=== PATIENT | female | born 1975 | race African-American/Black ===

== ENCOUNTER 2018-07-05 17:56 | Emergency (ER) | payer SELFPAY ==
[~2018-07-05] VITALS: Ht 154.9 cm; Wt 111.4 kg
[2018-07-05 18:19] VITALS: TEMP 98
[2018-07-05 18:45] LABS: COLLECTION METHOD CLEAN CATCH
[2018-07-05 18:59] LABS: PH 6 (5-8); URINE APPEARANCE Clear; URINE BACTERIA None Seen /hpf; URINE BILIRUBIN Negative (NEGATIVE); URINE BLOOD Negative (NEGATIVE); URINE COLOR Yellow; URINE GLUCOSE 3+ (NEGATIVE); URINE KETONE Trace (NEGATIVE); URINE LEUKOCYTE ESTERASE Negative (NEGATIVE); URINE NITRATE Negative (NEGATIVE); URINE PROTEIN(semi-quant) Negative (NEGATIVE); URINE RBC 0-2 /hpf; URINE UROBILINOGEN Negative (NEGATIVE)
[2018-07-05] MEDS ORDERED: LEVOXYL0.2 MG PO (19:17)
[2018-07-05] MEDS ORDERED: BASAGLAR K100 UNIT/1 (19:18)
[2018-07-05] MEDS ORDERED: LANTUS SOLOS100 U/ML ×2 (19:18→19:19)
[2018-07-05 20:13] LABS: BASO # 0.1 (0.0-0.2); BASO % 0.4 % (0.0-2.0); EOS # 0.3 (0.0-0.7); GRAN # 9.7 (1.4-6.5); GRAN % 71.3 % (42.2-75.2); HEMATOCRIT 40.7 % (37.0-47.0); HEMOGLOBIN 12.9 g/dl (12.5-16.0); LYMPH # 2.7 (1.2-3.4); MEAN CELL VOLUME 79 fl (80.0-100.0); MEAN CORPUSCULAR HEMOGLOBIN 25 pg (27.0-31.0); MEAN CORPUSCULAR HGB CONC 32 g/dl (33.0-37.0); MEAN PLATELET VOLUME 12.3 fl (7.4-10.4); MONO # 0.8 (0.1-0.6); MONO % 5.9 % (1.7-9.3); PLATELET COUNT 327 K/mm3 (130-400); RED BLOOD COUNT 5.13 M/mm3 (4.10-5.30); REDCELL DISTRIBUTION WIDTH-CV 14.5 % (11.5-14.5)
[2018-07-05 20:26] LABS: ALBUMIN 4.2 gm/dL (3.5-5.0); BILIRUBIN,TOTAL 0.3 mg/dL (0.0-1.0); C-REACTIVE PROTEIN 1.2 mg/dL (0.0-0.9); CALCIUM 9.3 mg/dL (8.4-10.2); CREATININE, serum 0.61 mg/dL (0.52-1.25); POTASSIUM 4.1 mmol/L (3.4-5.0); TOTAL PROTEIN 7.6 gm/dL (6.4-8.2)
[2018-07-05] MEDS ORDERED: NYSTATIN POWDER30 GM TOP (22:48)
[2018-07-05 23:08] VITALS: BP 124/83; PULSE 69
== END 2018-07-05 23:08 | disposition home or self-care (01) ==
LOC: COL.ER 17:56
PROVIDERS: Emergency Medicine; Nurse Practitioner
DX: R10.30 Lower abdominal pain, unspecified (principal); R21 Rash and other nonspecific skin eruption; E11.9 Type 2 diabetes mellitus without complications; M06.9 Rheumatoid arthritis, unspecified; M79.7 Fibromyalgia; F17.210 Nicotine dependence, cigarettes, uncomplicated; Z79.4 Long term (current) use of insulin; Z90.49 Acquired absence of other specified parts of digestive tract
CPT/HCPCS: Q9967

== ENCOUNTER → 2019-01-14 | Outpatient (CLI) | payer SELFPAY ==
[~2019-01-14] MED LIST: BASAGLAR K100 UNIT/1; LANTUS SOLOS100 U/ML; LEVOXYL0.2 MG PO; NYSTATIN POWDER30 GM TOP
[2019-01-14 10:17] LABS: HEMATOCRIT 38.7 % (37.0-47.0); MEAN CELL VOLUME 79 fl (80.0-100.0); MEAN CORPUSCULAR HEMOGLOBIN 25 pg (27.0-31.0); MEAN CORPUSCULAR HGB CONC 31 g/dl (33.0-37.0); MEAN PLATELET VOLUME 11.2 fl (7.4-10.4); PLATELET COUNT 407 K/mm3 (130-400); REDCELL DISTRIBUTION WIDTH-CV 14.5 % (11.5-14.5)
[2019-01-14 10:20] LABS: ALBUMIN 4.1 gm/dL (3.5-5.0); BILIRUBIN,TOTAL 0.3 mg/dL (0.0-1.0); CHOLESTEROL RISK RATIO 5.2; CREATININE, serum 0.48 (0.52-1.25); POTASSIUM 3.9 mmol/L (3.4-5.0); TOTAL PROTEIN 7.4 gm/dL (6.4-8.2)
[2019-01-14 10:50] LABS: THYROID STIMULATING HORMONE 3.54 uIU/mL (0.465-4.680)
== END ==
LOC: COL.LAB 09:24
DX: Z01.89 Encounter for other specified special examinations (principal)

== ENCOUNTER → 2019-02-06 | Outpatient (CLI) | payer SELFPAY | LOC: DIA.ED 01-17 15:30 | DX: E11.9 Type 2 diabetes mellitus without complications (principal); E78.5 Hyperlipidemia, unspecified; E03.9 Hypothyroidism, unspecified; E66.9 Obesity, unspecified; Z79.4 Long term (current) use of insulin | CPT/HCPCS: G0108 ==

== ENCOUNTER → 2019-02-06 | Outpatient (CLI) | payer SELFPAY | LOC: COL.PUL 12:39 | DX: M06.9 Rheumatoid arthritis, unspecified (principal); E11.9 Type 2 diabetes mellitus without complications; Z90.89 Acquired absence of other organs ==

== ENCOUNTER → 2019-02-07 | Outpatient (CLI) | payer SELFPAY | LOC: COL.CARD 13:08 | DX: E11.9 Type 2 diabetes mellitus without complications (principal) ==

== ENCOUNTER 2019-03-03 12:24 | Emergency (ER) | payer SELFPAY ==
[~2019-03-03] VITALS: Ht 154.9 cm; Wt 106.8 kg
[~2019-03-03 12:24] MED LIST changes: -HUMALOGKP50/50 SQ
[2019-03-03 12:33] VITALS: TEMP 97.2
[2019-03-03] MEDS ORDERED: HUMALOGKP50/50 SQ (13:58)
[2019-03-03 14:08] LABS: COLLECTION METHOD CLEAN CATCH
[2019-03-03 14:17] LABS: BASO # 0.1 (0.0-0.2); BASO % 0.3 % (0.0-2.0); EOS # 0.1 (0.0-0.7); EOS % 0.8 % (0-4.0); GRAN # 12.7 (1.4-6.5); GRAN % 79.6 % (42.2-75.2); HEMATOCRIT 41.8 % (37.0-47.0); HEMOGLOBIN 12.9 g/dl (12.5-16.0); LYMPH # 2.2 (1.2-3.4); LYMPH % 13.9 % (20.0-51.0); MEAN CELL VOLUME 78 fl (80.0-100.0); MEAN CORPUSCULAR HEMOGLOBIN 24 pg (27.0-31.0); MEAN CORPUSCULAR HGB CONC 31 g/dl (33.0-37.0); MEAN PLATELET VOLUME 11.2 fl (7.4-10.4); MONO # 0.7 (0.1-0.6); MONO % 4.6 % (1.7-9.3); PLATELET COUNT 403 K/mm3 (130-400); RED BLOOD COUNT 5.37 M/mm3 (4.10-5.30); REDCELL DISTRIBUTION WIDTH-CV 15.8 % (11.5-14.5)
[2019-03-03 14:34] LABS: MUCOUS Present /lpf; PH 5 (5-8); URINE APPEARANCE Hazy; URINE BACTERIA None Seen /hpf; URINE BILIRUBIN Negative (NEGATIVE); URINE BLOOD Negative (NEGATIVE); URINE COLOR Yellow; URINE GLUCOSE Negative (NEGATIVE); URINE KETONE Negative (NEGATIVE); URINE LEUKOCYTE ESTERASE Negative (NEGATIVE); URINE NITRATE Negative (NEGATIVE); URINE PROTEIN(semi-quant) Negative (NEGATIVE); URINE RBC 0-2 /hpf; URINE UROBILINOGEN Negative (NEGATIVE)
[2019-03-03 15:19] LABS: ALBUMIN 4.2 gm/dL (3.5-5.0); BILIRUBIN,TOTAL 0.3 mg/dL (0.0-1.0); C-REACTIVE PROTEIN 1.1 mg/dL (0.0-0.9); CALCIUM 8.7 mg/dL (8.4-10.2); CREATININE, serum 0.61 (0.52-1.25); POTASSIUM 4.2 mmol/L (3.4-5.0); TOTAL PROTEIN 7.6 gm/dL (6.4-8.2)
[2019-03-03 16:47] VITALS: BP 131/79; PULSE 62
== END 2019-03-03 16:50 | disposition home or self-care (01) ==
LOC: COL.ER 12:24
PROVIDERS: Emergency Medicine; Physician Assistant
DX: R10.32 Left lower quadrant pain (principal); E11.9 Type 2 diabetes mellitus without complications; E03.9 Hypothyroidism, unspecified; F17.210 Nicotine dependence, cigarettes, uncomplicated; Z90.89 Acquired absence of other organs; Z79.4 Long term (current) use of insulin
CPT/HCPCS: J7030; Q9967

== ENCOUNTER → 2019-03-03 | Outpatient (CLI) | payer SELFPAY ==
[~2019-03-03] MED LIST changes: +HUMALOGKP50/50 SQ
== END ==
LOC: DIA.ED 10:12
DX: E11.9 Type 2 diabetes mellitus without complications (principal); E78.5 Hyperlipidemia, unspecified; E03.9 Hypothyroidism, unspecified; E66.9 Obesity, unspecified; Z79.4 Long term (current) use of insulin
CPT/HCPCS: G0108

== ENCOUNTER → 2019-03-24 | Outpatient (CLI) | payer SELFPAY ==
[~2019-03-24] MED LIST changes: +HUMALOGKP50/50 SQ
== END ==
LOC: DIA.ED 08:53
DX: E11.9 Type 2 diabetes mellitus without complications (principal); E78.5 Hyperlipidemia, unspecified; E03.9 Hypothyroidism, unspecified; E66.9 Obesity, unspecified
CPT/HCPCS: G0108

== ENCOUNTER 2019-08-15 14:54 | Inpatient (IN) | payer OTHER ==
[~2019-08-15] VITALS: Ht 154.9 cm; Wt 108.5 kg
[2019-08-15 15:42] LABS: BASO # 0.1 (0.0-0.2); BASO % 0.3 % (0.0-2.0); EOS # 0.1 (0.0-0.7); EOS % 0.5 % (0-4.0); GRAN # 16.8 (1.4-6.5); GRAN % 84.4 % (42.2-75.2); HEMATOCRIT 42.2 % (37.0-47.0); HEMOGLOBIN 13.2 g/dl (12.5-16.0); LYMPH # 1.8 (1.2-3.4); LYMPH % 8.8 % (20.0-51.0); MEAN CELL VOLUME 77 fl (80.0-100.0); MEAN CORPUSCULAR HEMOGLOBIN 24 pg (27.0-31.0); MEAN CORPUSCULAR HGB CONC 31 g/dl (33.0-37.0); MEAN PLATELET VOLUME 11.9 fl (7.4-10.4); MONO # 1.1 (0.1-0.6); MONO % 5.6 % (1.7-9.3); PLATELET COUNT 405 K/mm3 (130-400); RED BLOOD COUNT 5.48 M/mm3 (4.10-5.30); REDCELL DISTRIBUTION WIDTH-CV 14.7 % (11.5-14.5)
[2019-08-15 16:02] LABS: ALBUMIN 4.4 gm/dL (3.5-5.0); BILIRUBIN,TOTAL 0.7 mg/dL (0.0-1.0); CALCIUM 9.3 mg/dL (8.4-10.2); CREATININE, serum 0.52 (0.52-1.25); POTASSIUM 3.6 mmol/L (3.4-5.0); TOTAL PROTEIN 8.2 gm/dL (6.4-8.2)
[2019-08-15 16:23] LABS: C-REACTIVE PROTEIN 19.1 mg/dL (0.0-0.9)
--- NOTE | 2019-08-15 19:02 | NUR ---
settled patient to room and gave report to Kristal BENNETT.
[2019-08-15 20:01] VITALS: BP 116/64; PULSE 87; TEMP 98.3
[2019-08-15 20:10] VITALS: BP 116/64; PULSE 83; TEMP 98.3
[2019-08-15] MEDS ORDERED: LANTUS SOLOS100 U/ML SQ (21:11)
[2019-08-15] MEDS ORDERED: HUMALOG100 U/ML SQ (22:15)
--- NOTE | 2019-08-15 23:30 | NUR ---
Called with c/o pain to lower abdomen/labia-rating pain 10/10 on pain scale-described as sharp shooting pains. [place] [address] horton. Will monitor.
--- NOTE | 2019-08-15 23:40 | NUR ---
Called stating she couldnt handle the pain-or wait for pain pill to kick in. States she needs relief now. Morphine 2mg given per dr order. Instructed to call for pain meds earlier-scheduled discussed on frequency of medications. Verblaizes understanding. Call light in reach. Will monitor.
[2019-08-16] VITALS (7 sets, daily range): BP systolic 100–127; BP diastolic 45–69; PULSE 86–93; TEMP 98.1–99.6
--- NOTE | 2019-08-16 05:53 | NUR ---
Rested off an on this shift. Received [place] as well as morphine for pain control. VS remained stable. Tolerated diet/voiding without difficulty. Denies needs. Call light in reach. Will monitor.
[2019-08-16 07:34] LABS: MEAN CELL VOLUME 76 fl (80.0-100.0); MEAN CORPUSCULAR HGB CONC 31 g/dl (33.0-37.0); PLATELET COUNT 337 K/mm3 (130-400); RED BLOOD COUNT 4.41 M/mm3 (4.10-5.30); REDCELL DISTRIBUTION WIDTH-CV 14.6 % (11.5-14.5)
[2019-08-16 07:45] LABS: CALCIUM 7.9 mg/dL (8.4-10.2); CREATININE, serum 0.44 (0.52-1.25); MAGNESIUM 1.5 mg/dL (1.6-2.3); POTASSIUM 3.2 mmol/L (3.4-5.0)
[2019-08-16 07:47] LABS: HEMATOCRIT 33.7 % (37.0-47.0); HEMOGLOBIN 10.5 g/dl (12.5-16.0); MEAN CORPUSCULAR HEMOGLOBIN 24 pg (27.0-31.0)
[2019-08-16 09:43] LABS: LYMPHOCYTE 5 % (20.0-51.0); NEUTROPHILS 87 % (42.0-75.2)
[2019-08-16 09:44] LABS: PLATELET ESTIMATE NORMAL (NORMAL)
--- NOTE | 2019-08-16 12:44 | NUR ---
Plan: To return home with Naman Hartman . Assess: Patient reports that she resides in town. Patient shares that she uses the [facility] and sees Dr. Burnett. Marlee christina having a DPOA. Patient reports that she obtains her medications form [facility] on [address]. Patient denies having any DME use or home health use. Declines services. Patient denies having any care concerns. Reports will help transport home. Action: Educated on resources, nothing follows.
--- NOTE | 2019-08-16 18:30 | NUR ---
Patient did well todady. She has been resting most of the day. Offered to help her shower this morning, she did not want to shower. She had norco twice today for pain in her lower abdomen when getting back into bed. No complaints of nausea. No other changes at this time. Call light within reach.
[2019-08-17 03:36] VITALS: BP 112/62; PULSE 95; TEMP 98.1
--- NOTE | 2019-08-17 04:13 | NUR ---
Patient up to take a shower at beginning of the shift. This was noted to be very difficult for her and patient complained of pain 10/10 to abdomen. Patient sat on her bed, and was given pain medication. She then had a moderate amount of emesis. Patient stated she felt much better. Patient then fell asleep and has been resting until about 0400 when she requested more pain medication. This was administered and patient fell back to sleep. IV antibiotics given per orders. Will continue to monitor patient.
[2019-08-17 07:54] VITALS: BP 118/70; PULSE 100; TEMP 98.3
[2019-08-17 07:57] LABS: HEMOGLOBIN 10.8 g/dl (12.5-16.0); MEAN CELL VOLUME 77 fl (80.0-100.0); MEAN CORPUSCULAR HEMOGLOBIN 24 pg (27.0-31.0); MEAN CORPUSCULAR HGB CONC 32 g/dl (33.0-37.0); MEAN PLATELET VOLUME 12.1 fl (7.4-10.4); PLATELET COUNT 373 K/mm3 (130-400); RED BLOOD COUNT 4.46 M/mm3 (4.10-5.30); REDCELL DISTRIBUTION WIDTH-CV 14.9 % (11.5-14.5)
[2019-08-17 07:59] LABS: HEMATOCRIT 34.1 % (37.0-47.0)
[2019-08-17 08:05] LABS: CALCIUM 8.3 mg/dL (8.4-10.2); CREATININE, serum 0.48 (0.52-1.25); MAGNESIUM 2.4 mg/dL (1.6-2.3); POTASSIUM 3.5 mmol/L (3.4-5.0)
[2019-08-17 08:56] LABS: BAND 1 % (0-10); LYMPHOCYTE 11 % (20.0-51.0); NEUTROPHILS 81 % (42.0-75.2); PLATELET ESTIMATE NORMAL (NORMAL)
[2019-08-17 08:58] LABS: OVALOCYTES 1+
--- NOTE | 2019-08-17 10:02 | NUR ---
Patient alert and oriented, answers questions appropriately. See assessment. Lower abdomen with redness and edema noted, patient states no real improvement. Abdomen soft, non tender, non distended. Bowel sounds active x4 quads. +Flatus. No other c/o at this time.
[2019-08-17 11:09] VITALS: BP 117/63; PULSE 90; TEMP 99.1
--- NOTE | 2019-08-17 11:45 | NUR ---
Dr Judd here to see patient.
--- NOTE | 2019-08-17 12:14 | NUR ---
Dr Feliciano notified of consult.
[2019-08-17 16:21] VITALS: BP 112/67; PULSE 80; TEMP 98.2
[2019-08-17 20:00] VITALS: BP 90/51; PULSE 89; TEMP 98.4
[2019-08-18 00:16] VITALS: BP 116/61; PULSE 97; TEMP 98.8
[2019-08-18 04:20] VITALS: BP 100/76; PULSE 87; TEMP 99
--- NOTE | 2019-08-18 05:28 | NUR ---
Patient has rested well throughout the night. Requested and received Zofran with Rocephin dose tonight. Patient had nausea, but no vomiting. Patient educated about the adverse effect. INT to right AC flushes slowly, but easily. Lower abdomen continues to be red, warm, and edematous. PRN pain medication given when requested per orders. States this is effective for her pain. Patient is independent when ambulating to the restroom. Denies any further needs. Will continue to monitor.
[2019-08-18 07:10] LABS: MEAN CELL VOLUME 76 fl (80.0-100.0); MEAN CORPUSCULAR HGB CONC 32 g/dl (33.0-37.0); MEAN PLATELET VOLUME 11.9 fl (7.4-10.4); PLATELET COUNT 370 K/mm3 (130-400); RED BLOOD COUNT 3.98 M/mm3 (4.10-5.30); REDCELL DISTRIBUTION WIDTH-CV 14.8 % (11.5-14.5)
[2019-08-18 07:14] VITALS: BP 108/61; PULSE 94; TEMP 99.1
[2019-08-18 07:16] LABS: HEMATOCRIT 30.4 % (37.0-47.0); HEMOGLOBIN 9.6 g/dl (12.5-16.0); MEAN CORPUSCULAR HEMOGLOBIN 24 pg (27.0-31.0)
[2019-08-18 07:32] LABS: CALCIUM 8.4 mg/dL (8.4-10.2); CREATININE, serum 0.74 (0.52-1.25); MAGNESIUM 2.1 mg/dL (1.6-2.3); POTASSIUM 4.1 mmol/L (3.4-5.0)
[2019-08-18 08:03] LABS: C-REACTIVE PROTEIN 32.8 mg/dL (0.0-0.9)
[2019-08-18 08:56] LABS: BAND 10 % (0-10); EOSINOPHIL 4 % (0-4); LYMPHOCYTE 10 % (20.0-51.0); NEUTROPHILS 71 % (42.0-75.2)
[2019-08-18 09:01] LABS: HYPOCHROMIA 1+; MICROCYTOSIS 1+; PLATELET ESTIMATE NORMAL (NORMAL)
--- NOTE | 2019-08-18 10:00 | NUR ---
Patient alert and oriented, answers questions appropriately. See assessment. Abdomen with minimal discoloration noted, warm to touch, edema noted. Bowel sounds active x4 quads. +Flatus. C/o pain to abdomen 3/10. No other c/o at this time.
[2019-08-18 11:40] VITALS: BP 117/63; PULSE 84; TEMP 98.3
--- NOTE | 2019-08-18 12:31 | NUR ---
Dr Barroso here to see patient.
[2019-08-18 15:35] VITALS: BP 110/59; PULSE 86; TEMP 99
--- NOTE | 2019-08-18 20:15 | NUR ---
Received report sofia Hall RN. Alert and oriented x4. c/o pain to lower abdomen, rate 7/10. Requesting pain meds when due. Scheduled meds and PRN pain meds administered as requested by pateint. Lower abdomen with slight redness, firm, tender to touch. Mid and upper abdomen without c/o pain. Bowel sounds active x4. PICC to NAOMI intact, flushed, dressing CDI. Needs met at this time. Call light within reach.
[2019-08-18 20:39] VITALS: BP 115/62; PULSE 92; TEMP 99.2
[2019-08-19 00:40] VITALS: BP 110/64; PULSE 96; TEMP 99.1
[2019-08-19 04:14] VITALS: BP 110/66; PULSE 97; TEMP 99.2
--- NOTE | 2019-08-19 05:11 | NUR ---
Pt requested pain meds for rate 7/10 abdomen pain. PRN pain meds adminsitered as requested by pt. Needs met at this time. Call light within reach.
[2019-08-19 06:22] LABS: MEAN CELL VOLUME 77 fl (80.0-100.0); MEAN CORPUSCULAR HEMOGLOBIN 24 pg (27.0-31.0); MEAN CORPUSCULAR HGB CONC 31 g/dl (33.0-37.0); PLATELET COUNT 405 K/mm3 (130-400); RED BLOOD COUNT 4.17 M/mm3 (4.10-5.30)
[2019-08-19 06:32] LABS: CALCIUM 8.6 mg/dL (8.4-10.2); CREATININE, serum 0.92 (0.52-1.25); MAGNESIUM 2.1 mg/dL (1.6-2.3); POTASSIUM 4.2 mmol/L (3.4-5.0)
[2019-08-19 06:44] LABS: HEMATOCRIT 31.9 % (37.0-47.0)
[2019-08-19 07:01] LABS: BAND 14 % (0-10); EOSINOPHIL 2 % (0-4); LYMPHOCYTE 9 % (20.0-51.0); NEUTROPHILS 65 % (42.0-75.2); PLATELET ESTIMATE NORMAL (NORMAL)
[2019-08-19 07:29] VITALS: BP 109/62; PULSE 89; TEMP 98.4
--- NOTE | 2019-08-19 08:00 | NUR ---
PATIENT IS A&O. RATES PAIN IN ABD AT 6-7 ON PAIN SCALE. GAVE PRN NORCO, ONE TAB WITH AM MEDS. ABD/PANUS IS RED, FIRM AND WITH NOTED CELLULITIS. APPLIED ABD TO PANUS FOLDS DUE TO MOISTURE AND SKIN IRRITATION. PATIENT'S WBC WENT UP TO 22.4. PATIENT HAS LOW GRADE TEMPS. ALL OTHER VSS. RIGHT PICC LINE WITH IV ABX INFUSING. PATIENT INDEPENDENT IN ROOM. HEAD TO TOE ASSESSMENT COMPLETE. AM BS WAS 203, INSULIN GIVEN. NO OTHER NEEDS.
[2019-08-19 11:10] VITALS: BP 104/60; PULSE 85; TEMP 98.2
--- NOTE | 2019-08-19 11:37 | NUR ---
First visit from the summer analyst. No needs right now.
--- NOTE | 2019-08-19 12:39 | NUR ---
The patient may be needing IV antibiotics. Will continue to monitor.
[2019-08-19 15:48] VITALS: BP 111/63; PULSE 89; TEMP 99.2
--- NOTE | 2019-08-19 19:15 | NUR ---
Received report from SABRINA Shankar. Pt is currently sittin up in the chair. Pt has her call light within reach and has no concerns at this time.
[2019-08-19 21:05] VITALS: BP 112/61; PULSE 79; TEMP 98.4
[2019-08-20 00:38] VITALS: BP 105/63; PULSE 82; TEMP 98.9
[2019-08-20 04:17] VITALS: BP 113/58; PULSE 78; TEMP 98.4
--- NOTE | 2019-08-20 04:30 | NUR ---
Pt is currently sleeping in bed. Pt did request pain medication twice during the shift. She called out at 2030 and at this time she requested something other than [place]. She was given 2 Tylenol at this time. Pt slept for a while during hourly rounds she requested something for pain at this time. She stated that she that she would rather have the Tylenol at this time. She was given the pain medication. During the pt assessment there were not abnomal finding. Pt lungs sounds were clear and her heart sounds were normal S1 and S2 sounds. Pt did have some drainage on the ABD pad placed under her abdomen. These were changed at this time. Pt had no other complaints during the night. Pt was able to tolerate fluids well during the night she also ate a cup of yogurt right before bed. She has her call light within reacha and her bed is in lowest positon .
--- NOTE | 2019-08-20 06:21 | NUR ---
Pt currently resting in bed. Pt did state that her pain was better. Pt was able to tolerate fluid while taking her morning mediations. Pt ABD pads were changed at this time. There was a small amount of drainage. Pt call light is within reach and bed is in lowest position.
--- NOTE | 2019-08-20 07:26 | NUR ---
Reported off to SABRINA Shankar. Pt has her call light within reach and her bed is in lowest positon
[2019-08-20 07:42] LABS: MEAN CELL VOLUME 76 fl (80.0-100.0); MEAN CORPUSCULAR HGB CONC 31 g/dl (33.0-37.0); MEAN PLATELET VOLUME 10.9 fl (7.4-10.4); PLATELET COUNT 377 K/mm3 (130-400); RED BLOOD COUNT 3.71 M/mm3 (4.10-5.30); REDCELL DISTRIBUTION WIDTH-CV 14.9 % (11.5-14.5)
[2019-08-20 07:44] LABS: HEMATOCRIT 28.2 % (37.0-47.0); HEMOGLOBIN 8.8 g/dl (12.5-16.0); MEAN CORPUSCULAR HEMOGLOBIN 24 pg (27.0-31.0)
--- NOTE | 2019-08-20 08:00 | NUR ---
PATIENT IS A&O. VSS. C/O SEVERE PAIN IN PANUS FOLDS. GAVE PRN NORCO WITH AM MEDS. PANUS FOLDS ARE EXCORIATED WITH RED, TENDER AND MOIST SKIN. APPLIED ABD INTO PANUS FOLDS. PATIENT ASSITED TO CLEAN THIS AM. IV ABX INFUSING INTO RIGHT PICC. NO C/O N/V. BREAKFAST TRAY AT BEDSIDE. AM BS WAS 110, NO SSI REQUIRED. GAVE SCHEDULED INSULIN. HEAD TO TOE ASSESSMENT COMPLETE. INDEPENDENT IN ROOM. CALL LIGHT IN REACH.
[2019-08-20 08:07] LABS: CALCIUM 8.1 mg/dL (8.4-10.2); CREATININE, serum 0.76 (0.52-1.25)
[2019-08-20 08:28] LABS: C-REACTIVE PROTEIN 20.8 mg/dL (0.0-0.9)
[2019-08-20 08:31] VITALS: BP 117/69; PULSE 81; TEMP 98.1
[2019-08-20 09:11] LABS: LYMPHOCYTE 8 % (20.0-51.0); MYELOCYTE 1 % (0-0)
[2019-08-20 09:14] LABS: HYPOCHROMIA 1+; PLATELET ESTIMATE NORMAL (NORMAL)
[2019-08-20 09:15] LABS: POIKILOCYTOSIS 1+
[2019-08-20 09:25] LABS: BAND 8 % (0-10); NEUTROPHILS 76 % (42.0-75.2)
--- NOTE | 2019-08-20 12:25 | NUR ---
PATIENT C/O NAUSEA AFTER EATING 90% OF HER LUNCH TRAY. GAVE PRN ZOFRAN IV. PATIENT HAD BM YESTERDAY BUT REPORTS IT WAS HARD. PATIENT GETTING STOOL SOFTNERS
[2019-08-20 12:31] VITALS: BP 113/66; PULSE 78; TEMP 98.1
--- NOTE | 2019-08-20 14:40 | NUR ---
AT BEDSIDE ROUNDING
--- NOTE | 2019-08-20 14:48 | NUR ---
PATIENT C/O PAIN IN ABD/PANUS. GAVE PRN NORCO, ONE TAB
[2019-08-20 16:34] VITALS: BP 115/64; PULSE 77; TEMP 98.1
[2019-08-20 19:44] VITALS: BP 117/60; PULSE 83; TEMP 98.5
--- NOTE | 2019-08-20 20:00 | NUR ---
Received report from SABRINA Shankar. Pt was sitting up in bed at this time. During pt assessment pt lungs sounds were clear, heart sounds were normal S1 and S2 sounds. Pt ABD pads were changed at this time. There was minimal drainage at this time. New pads were changed at this time. Pt has been ambulating around the room. Pt has her call light within reach and bed is in lowest position.
--- NOTE | 2019-08-20 21:50 | NUR ---
Pt requested somthing for pain at 1919. Pt was given [place] for pain at 1923. Pt has been ambulating around the room well. Pt did call out at 2109 and requested something for nausea. Pt was given Zofran at this time. Pt stated that this did help her when she took it earlier in the day. Pt has been drinking fluids well. Pt has her call light within reach and her bed is in lowest position.
[2019-08-21] VITALS (7 sets, daily range): BP systolic 106–124; BP diastolic 55–66; PULSE 84–95; TEMP 98–98.9
[2019-08-21 06:15] LABS: MEAN CELL VOLUME 76 fl (80.0-100.0); MEAN CORPUSCULAR HGB CONC 31 g/dl (33.0-37.0); MEAN PLATELET VOLUME 11.2 fl (7.4-10.4); PLATELET COUNT 437 K/mm3 (130-400); RED BLOOD COUNT 3.72 M/mm3 (4.10-5.30)
[2019-08-21 06:21] LABS: HEMATOCRIT 28.4 % (37.0-47.0); HEMOGLOBIN 8.9 g/dl (12.5-16.0); MEAN CORPUSCULAR HEMOGLOBIN 24 pg (27.0-31.0)
[2019-08-21 06:25] LABS: CALCIUM 8.1 mg/dL (8.4-10.2); CREATININE, serum 0.72 (0.52-1.25); POTASSIUM 3.9 mmol/L (3.4-5.0)
--- NOTE | 2019-08-21 06:46 | NUR ---
Pt currently lying in bed resting. ABD were changed at this time. There was still some bloody, light yellow drainage on one of the ABD pads. Pt does have her call light within reach and her bed is in lowest position.
[2019-08-21 06:56] LABS: IRON,SERUM 17 ug/dL (35-150)
[2019-08-21 07:02] LABS: BAND 18 % (0-10); EOSINOPHIL 1 % (0-4); METAMYELOCYTE 1 % (0-0); NEUTROPHILS 75 % (42.0-75.2)
[2019-08-21 07:03] LABS: HYPOCHROMIA 1+; PLATELET ESTIMATE INCREASED (NORMAL)
[2019-08-21 07:04] LABS: POIKILOCYTOSIS 1+
[2019-08-21 07:06] LABS: TOTAL IRON BINDING CAPACITY 251 ug/dL (265-497)
[2019-08-21 08:05] LABS: C-REACTIVE PROTEIN 19.4 mg/dL (0.0-0.9)
--- NOTE | 2019-08-21 08:39 | NUR ---
Patient resting in bed. Low abdominal pain-[place] for pain. Once medication working-will change dressings. Concerns about constipation. Spoke with hospitalist team. Medication added. Picc to Int. Will encouraged activity.
[2019-08-21 08:45] LABS: PATHOLOGY DIFF REVIEW OK +
--- NOTE | 2019-08-21 10:21 | NUR ---
Dr. Judd rounded, Plan of care reviewed. Patient has drank her Mom with prune juice heated and miralax with cranberry juice. We ambulated in the halls-patient was very slow to move, stopping multiple times to rest. Perspiration noted on forehead. dyspnea with exertion. Updated hospitalist on patient conditioning. Orders obtained. Patient now sitting up in chair. Leonard lilly.
--- NOTE | 2019-08-21 12:10 | NUR ---
Patient sitting up in bed. PT & OT worked with patient, she did make it to the hallways. Abdominal ultrasound completed. Patient did have increased nausea & pain with this. Patient medicated with Iv morphine & zofran. Patient did still have emesis with her lunch. Patient assisted with hygiene after including oral care. She feels the pain caused her nausea. Insulin was already given, will watch her blood sugars, since she was not able to eat.
--- NOTE | 2019-08-21 12:35 | NUR ---
PT/OT are recommending home for the patient. Per nurse the lab results were high and will be rechecked again tomorrow, 08/21 to check for improvement.
--- NOTE | 2019-08-21 13:10 | NUR ---
CHARLES met with the patient to discuss her insulin needs. The patient receives insulin from [facility]. Will continue to monitor for needs.
--- NOTE | 2019-08-21 19:17 | NUR ---
Patient resting in bed. watching TV. Minimal appetite. Nausea. Pain manged with norco. Still having constipation, very small Bm after Dulcolax. New Abd pad to angélica, continues to have draiange. Report to SABRINA Carmichael
[2019-08-22] VITALS (14 sets, daily range): BP systolic 109–124; BP diastolic 54–75; PULSE 75–96; TEMP 97.4–98.7
[2019-08-22 06:03] LABS: MEAN CELL VOLUME 77 fl (80.0-100.0); MEAN CORPUSCULAR HGB CONC 31 g/dl (33.0-37.0); PLATELET COUNT 390 K/mm3 (130-400); RED BLOOD COUNT 3.81 M/mm3 (4.10-5.30)
[2019-08-22 06:04] LABS: HEMATOCRIT 29.2 % (37.0-47.0); HEMOGLOBIN 9.1 g/dl (12.5-16.0); MEAN CORPUSCULAR HEMOGLOBIN 24 pg (27.0-31.0)
[2019-08-22 06:16] LABS: CALCIUM 8.6 mg/dL (8.4-10.2); CREATININE, serum 0.72 (0.52-1.25); MAGNESIUM 2.1 mg/dL (1.6-2.3)
--- NOTE | 2019-08-22 06:46 | NUR ---
Pt ambulated down the hallway. Pt walked at a slow pace but had no signs of dizziness or feeling lightheaded. Pt is currently getting ready for a shower. She stated her pain was better this morning. Pt has her call light within reach
--- NOTE | 2019-08-22 07:34 | NUR ---
Reported off to SABRINA Davis. Pt has took her shower. Pt was assisted in getting dressed and she is now sitting up in her chair eating her breakfast. Pt has her call light within reach and her bed is in lowest position.
[2019-08-22 07:36] LABS: BAND 17 % (0-10); EOSINOPHIL 3 % (0-4); LYMPHOCYTE 10 % (20.0-51.0); MYELOCYTE 2 % (0-0); NEUTROPHILS 62 % (42.0-75.2); NUCLEATED RED BLOOD CELL 1 (0-6); PLATELET ESTIMATE NORMAL (NORMAL)
--- NOTE | 2019-08-22 12:27 | NUR ---
Per nurse, Dr. Barroso will do an exploratory procedure on the patient this day due to abdominal swelling. Will continue to monitor.
--- NOTE | 2019-08-22 13:00 | NUR ---
Patient attended therapies this morning, but did report having a lot of abdominal pain. Abdomen has some edema under the pannus and there is some yellow drainage to that area. She had a shower this morning and is currently in a clean gown. Patient had some nausea this morning and was given prn zofran. Will continue to monitor.
--- NOTE | 2019-08-22 13:25 | NUR ---
Patient signed surgery consent form. Currently resting in bed, call light in reach and is awaiting procedure at 3:30 PM.
--- NOTE | 2019-08-22 14:05 | NUR ---
Patient independent with toileting and eating breakfast. NPO at this time, while she is awaiting her procedure this afternoon.
--- NOTE | 2019-08-22 17:36 | NUR ---
Patient returned from her procedure. Received report from OR nurse.
--- NOTE | 2019-08-22 19:14 | NUR ---
Received report from Dr. Barroso stating that he found a big sandy size abscess in patient's abdomen area under pannus. They did a wet to dry dressing to the area and he wants it to be changed Q shift.
--- NOTE | 2019-08-22 19:20 | NUR ---
Report received. 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 Assessment complete. VS stable. A&Ox3-drowsy. ADA diet ordered-waiting arrival. WIll hold scheduled insulin until tray arrives. Dressing to lower abdomen-gauze/medipore-CDI. PICC to right upper arm flushes without difficulty. Plan of care discussed for dressing change/HS meds/pain meds/antibiotics. Denies questions/concerns. Encouraged to call for quesitons/concerns or when ready to void. Verbalizes understanding. WIll monitor.
[2019-08-23] VITALS (7 sets, daily range): BP systolic 96–152; BP diastolic 59–79; PULSE 53–86; TEMP 97.7–99.5
--- NOTE | 2019-08-23 01:15 | NUR ---
[place] on tab given per dr order in prep for wet to dry dressing change. Rating pain 4/10 on pain scale-described as constant burn. Will monitor.
--- NOTE | 2019-08-23 02:45 | NUR ---
Wet to dry dressing change completed at this time. NS soaked kerlix packed into abdominal wound. Covered with ABDx1. Medipore tape applied. Tolerated well. Medicated with morphine 2mg per dr order post dressing change.
[2019-08-23 06:23] LABS: MEAN CELL VOLUME 76 fl (80.0-100.0); MEAN CORPUSCULAR HGB CONC 31 g/dl (33.0-37.0); MEAN PLATELET VOLUME 10.9 fl (7.4-10.4); PLATELET COUNT 423 K/mm3 (130-400); RED BLOOD COUNT 3.79 M/mm3 (4.10-5.30); REDCELL DISTRIBUTION WIDTH-CV 15.2 % (11.5-14.5)
[2019-08-23 06:30] LABS: CALCIUM 8.2 mg/dL (8.4-10.2); CREATININE, serum 0.72 (0.52-1.25); POTASSIUM 4.1 mmol/L (3.4-5.0)
[2019-08-23 06:34] LABS: HEMATOCRIT 28.8 % (37.0-47.0); HEMOGLOBIN 8.9 g/dl (12.5-16.0); MEAN CORPUSCULAR HEMOGLOBIN 23 pg (27.0-31.0)
[2019-08-23 06:41] LABS: C-REACTIVE PROTEIN 14.2 mg/dL (0.0-0.9)
[2019-08-23 09:55] LABS: BAND 2 % (0-10); HYPOCHROMIA 1+; LYMPHOCYTE 5 % (20.0-51.0); NEUTROPHILS 89 % (42.0-75.2); PLATELET ESTIMATE NORMAL (NORMAL)
--- NOTE | 2019-08-23 17:48 | NUR ---
Patient currently resting in bed at this time. Patient has remained in bed for a large part of the shift, did ambulate a short way with SBA and is able to go to and from the bathroom independently. Dressing changed to abcess on distal right abdomen under the pannus. Dressing was intact upon removal, there was some blood apparent on the outside of the dressing that appeared to be transfer from her menses. Gauze packing removed, only a moderate amount of bloody drainage apparent. Dressing replaced with gauze roll saturated with sterile water, ABD, and paper tape. Patient expressed pain during the procedure, but overall tolerated well. Patient requests PRN pain medication, will administer at earliest allowable oppertunity. No further needs at this time, call light within reach.
--- NOTE | 2019-08-23 20:00 | NUR ---
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 Assessment complete. VS stable. A&Ox3-drowsy. Has been up in room walking around independently. Voiding without difficulty. +BM. Refused stool softners this HS due to frequent BMs. Dressing to lower abdomen CDI. Plan of care discussed for dressing change this shift as well as pain control/ambulation. Verbalizes understanding. Call light in reach. Will monitor.
--- NOTE | 2019-08-24 00:07 | NUR ---
C/O pain to lower abdomen rating 10/10 on pain scale-described as a constant burning/throbbing sensation. [place] one tab given per dr order. Will monitor.
[2019-08-24 00:10] VITALS: BP 135/87; PULSE 84; TEMP 98.6
--- NOTE | 2019-08-24 00:50 | NUR ---
Rating pain 9/10-described as constant burning/throbbing to lower abdomen. [place] given per dr order. Discussed doing dressing change for approx 0230 to allow medications to take effect. Verbalizes understanding. Call light in reach. Will monitor.
--- NOTE | 2019-08-24 02:00 | NUR ---
Called with c/o nausea. States she got up to the bathroom and a wave nausea "hit her." Zofran 4mg given IV per dr order. Will monitor.
--- NOTE | 2019-08-24 02:30 | NUR ---
Wet to dry dressing change complete at this time. Normal saline soaked kerlix packed into wound to lower abdomen. Covered with ABD and medipore tape. Very tearful during procedure with increased pain levels. Morphine 2mg given post dressing change. Resting in bed. Call light in reach. Will monitor.
[2019-08-24 03:21] VITALS: BP 133/81; PULSE 85; TEMP 98.4
[2019-08-24 06:12] LABS: MEAN CELL VOLUME 75 fl (80.0-100.0); MEAN CORPUSCULAR HGB CONC 32 g/dl (33.0-37.0); MEAN PLATELET VOLUME 10.8 fl (7.4-10.4); PLATELET COUNT 418 K/mm3 (130-400); RED BLOOD COUNT 3.61 M/mm3 (4.10-5.30); REDCELL DISTRIBUTION WIDTH-CV 14.9 % (11.5-14.5)
[2019-08-24 06:13] LABS: HEMATOCRIT 27.2 % (37.0-47.0); HEMOGLOBIN 8.6 g/dl (12.5-16.0); MEAN CORPUSCULAR HEMOGLOBIN 24 pg (27.0-31.0)
[2019-08-24 06:23] LABS: C-REACTIVE PROTEIN 7.4 mg/dL (0.0-0.9); CALCIUM 8.1 mg/dL (8.4-10.2); CREATININE, serum 0.71 (0.52-1.25); POTASSIUM 3.9 mmol/L (3.4-5.0)
[2019-08-24 07:49] VITALS: BP 117/80; PULSE 78; TEMP 98.5
[2019-08-24 09:10] LABS: BAND 9 % (0-10); EOSINOPHIL 2 % (0-4); LYMPHOCYTE 12 % (20.0-51.0); MICROCYTOSIS 1+; NEUTROPHILS 65 % (42.0-75.2); PLATELET ESTIMATE NORMAL (NORMAL)
[2019-08-24 11:21] VITALS: BP 125/82; PULSE 79; TEMP 98.4
--- NOTE | 2019-08-24 11:47 | NUR ---
Patient reporting that she still having abdominal pain and had some nausea this morning. She was given prn zofran with good effect. Tolerating diet well. Denies questions at this time. Will continue to monitor.
[2019-08-24 15:42] VITALS: BP 139/89; PULSE 83; TEMP 97.8
--- NOTE | 2019-08-24 19:41 | NUR ---
Patient resting in recliner at this time, call light in reach and denies questions. Patient tolerated dressing change this afternoon. She was given PRN [place] prior to her dressing change and then required an additional [place] following the dressing change due to increase pain. Incision was cleaned and redressed using sterile technique. Wet to Dry Dressing applied and secured with Hepifix tape.
[2019-08-24 20:00] VITALS: BP 135/79; PULSE 75; TEMP 97.8
--- NOTE | 2019-08-24 20:00 | NUR ---
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 Assessment complete. Vitals stable. A&Ox3-Drowsy. Rating pain 4/10 on pain scale-described as constant throbbing and burning-denies need for intervention. Denies nausea/shortness of breath. Dressing to lower abdomen-CDI. Plan of care discussed for this shift to include HS meds/Pain meds/dressing change/ambulation. Verbalizes understanding and denies questions/concerns. Call light in reach. Will monitor.
[2019-08-25] VITALS: BP 126/73; PULSE 80; TEMP 98.6
--- NOTE | 2019-08-25 | NUR ---
Pt was awake in her room at this time. Pt took her medications at this time. Pt has been drinking plenty of fluids. Pt requested a refill on her water pitcher. I offered pt to ambulate again before bed. Pt ambulated downt the [address] to the joint nurse desk. Pt tolerated this well. Pt has her call light within reach.
[2019-08-25 03:25] VITALS: BP 140/89; PULSE 85; TEMP 97.9
--- NOTE | 2019-08-25 03:50 | NUR ---
Abdominal wet to dry dressing change completed at this time using kerlix saturated with NS. Covered with ABDs and light tape due to skin irritation. Rating pain 10/10 post change-morphine 21mg given IV per dr order.
[2019-08-25 07:37] VITALS: BP 129/82; PULSE 79; TEMP 98.3
[2019-08-25 08:01] LABS: MEAN CELL VOLUME 76 fl (80.0-100.0); MEAN CORPUSCULAR HGB CONC 31 g/dl (33.0-37.0); MEAN PLATELET VOLUME 11.4 fl (7.4-10.4); PLATELET COUNT 422 K/mm3 (130-400); RED BLOOD COUNT 3.74 M/mm3 (4.10-5.30); REDCELL DISTRIBUTION WIDTH-CV 15.2 % (11.5-14.5)
[2019-08-25 08:06] LABS: HEMATOCRIT 28.5 % (37.0-47.0); HEMOGLOBIN 8.7 g/dl (12.5-16.0); MEAN CORPUSCULAR HEMOGLOBIN 23 pg (27.0-31.0)
[2019-08-25 08:12] LABS: C-REACTIVE PROTEIN 4.4 mg/dL (0.0-0.9); CALCIUM 8.2 mg/dL (8.4-10.2); CREATININE, serum 0.74 (0.52-1.25); POTASSIUM 4.1 mmol/L (3.4-5.0)
[2019-08-25 08:49] LABS: BAND 40 % (0-10); EOSINOPHIL 5 % (0-4); HYPOCHROMIA 1+; LYMPHOCYTE 8 % (20.0-51.0); METAMYELOCYTE 4 % (0-0); MYELOCYTE 1 % (0-0); NEUTROPHILS 37 % (42.0-75.2); PLATELET ESTIMATE NORMAL (NORMAL)
[2019-08-25 11:28] VITALS: BP 143/91; PULSE 84; TEMP 98.5
[2019-08-25 16:05] VITALS: BP 136/79; PULSE 74; TEMP 98.1
--- NOTE | 2019-08-25 16:11 | NUR ---
The patient is going to need wound care and dressing changes twice a day. The patient does not have insurance. CHARLES had contacted Karla at [facility] to ask if they take elias cases and how often they would come out. Karla reports that if approved, they would only be able to do six visits and would teach the patient/family on how to do the dressing changes. CHARLES discussed this with the patient. The patient reports that the wound is in an area that she cannot reach and that her would not be able to do the dressing changes. CHARLES then discussed the option of receiving outpatient wound care at the [facility]. The patient reports that she would have transport and be able to get up to the clinic each day. CHARLES contacted and faxed the patient's information to Megan at the [facility] (ph#[phone], fax#[phone]). Megan reports that they normally do not do dressing changes twice a day. She states that SW can contact her tomorrow to set up an appointment and then they will eval the patient's wound. CHARLES notified Erum, nurse practitioner. CHARLES to staff with Dr. Landa. CHARLES to continue to follow.
--- NOTE | 2019-08-25 17:00 | NUR ---
Patient attended therapies today. She has been ambulating independently in her room and able to transfer independently from bed to chair and to toilet. Patient does require staff to assist her with getting a pad for her brief and to assist her with pulling the brief up past her knees then she is able to pull them up the rest of the way. Patient had a difficult time tolerating the new Dankes solution for her daily dressing changes. It caused a lot of burning to the area. Dr. Gastelum's was notified about this and he said that she could go back to using the same Sodium Chloride solution to put the gauze wet to dry dressing in. This nurse changed out Dankens dressing and then applied the sodium chloride wet to dry dressing and patient tolerated well. Area was secured with ABD pad and hepifix tape. Patient has been having diarrhea, see new orders to collect for a CDIFF. Patient is on her period at this time, so does have blood in urine at times. See also orders to collect for UA/UC. Due to patient having so much pain with dressing changes see new order to give two [place] prior to dressing changes. This information was communicated to night nurse.
--- NOTE | 2019-08-25 18:30 | NUR ---
PICC intact right upper arm. With sterile technique right upper arm PICC dressing change done with insertion site cleansed with ChloraPrep 1, chlorhexidine impregnated disc applied, skin prep, StatLock, and Tegaderm applied. No signs or symptoms of IV complications noted. No concerns voiced. Arm wrapped with [place] to protect catheter.
[2019-08-25 20:00] VITALS: BP 139/65; PULSE 71; TEMP 97.8
--- NOTE | 2019-08-25 20:55 | NUR ---
Received report from SABRINA Davis. Pt has been ambulating around her room. Pt did try to get a stool sample but the stool was not loose so stated that she would try again later. Pt stated that her pain was better since she had the pain mediation earlier. Pt requested to ambulate down the [address]. Pt was a standby assist down the [address] way pass the nurse station. Pt tolerated this walk very well. pt also got herself cleaned up and requested help with putting lotion on her legs. Pt legs showed edema bilaterally. During the assessement their were no abnormal findings. The heart sounds were normal S1 and S2 sounds, lungs sounds were clear, and bowel sounds were audible in all quads. pt dressig was clean, dry, and intact. Pt had no other request at this time. Room service did bring her a snack. Pt has her call light within reach and her bed is in lowest position.
[2019-08-26 00:07] VITALS: BP 140/87; PULSE 74; TEMP 97.8
--- NOTE | 2019-08-26 03:48 | NUR ---
Pt called out requesting something for pain. Pt stated that she was at a 10. Pt was given 2 [place] at this time. Will come back to reassess the pain and do dressing change in about 45 minutes. Pt is currently in the restroom.
[2019-08-26 03:50] VITALS: BP 129/80; PULSE 67; TEMP 97.8
--- NOTE | 2019-08-26 05:18 | NUR ---
Pt currently lying in bed awake. Dressing change was just done. Pt did not tolerate this well. Pt was in a lot of pain. At this time the old ABD pad was removed and the mosit 4x4's were removed. There was a flush syringe used to clean the area. There were two moist 4x4's packed at this time. The wound was then covered with a clean ABD pad and the edges were taped at this time. Pt is lying in bed at this time resting. Pt has her call light within reach and her bed is in lowest position.
[2019-08-26 06:34] LABS: MEAN CELL VOLUME 77 fl (80.0-100.0); MEAN CORPUSCULAR HGB CONC 32 g/dl (33.0-37.0); PLATELET COUNT 393 K/mm3 (130-400); REDCELL DISTRIBUTION WIDTH-CV 15.2 % (11.5-14.5)
[2019-08-26 06:50] LABS: ALBUMIN 3.2 gm/dL (3.5-5.0); BILIRUBIN,TOTAL 0.2 mg/dL (0.0-1.0); CALCIUM 8.5 mg/dL (8.4-10.2); CREATININE, serum 0.78 (0.52-1.25); TOTAL PROTEIN 6.3 gm/dL (6.4-8.2)
[2019-08-26 07:03] LABS: HEMATOCRIT 26.1 % (37.0-47.0); HEMOGLOBIN 8.3 g/dl (12.5-16.0); MEAN CORPUSCULAR HEMOGLOBIN 24 pg (27.0-31.0)
[2019-08-26 08:08] LABS: BAND 23 % (0-10); EOSINOPHIL 7 % (0-4); HYPOCHROMIA 2+; LYMPHOCYTE 16 % (20.0-51.0); METAMYELOCYTE 5 % (0-0); MYELOCYTE 4 % (0-0); NEUTROPHILS 45 % (42.0-75.2); PLATELET ESTIMATE NORMAL (NORMAL); SCHISTOCYTES 1+
--- NOTE | 2019-08-26 08:30 | NUR ---
Pt is currently sitting up in bed eating her breakfast. Pt stated that she was having pain and she wanted to take something for pain before she stareted Physical therapy. Pt was given one [place] at this time. Reported off to SABRINA Rodriguez. Pt has her call light within reach
[2019-08-26 09:07] VITALS: BP 127/84; PULSE 76; TEMP 98.4
--- NOTE | 2019-08-26 09:50 | NUR ---
CHARLES contacted Megan from [facility]. Megan reports that after the initial evaluation they will see the patient up to 3x a week and they do not do changes 2x a day. Wound clinic will educate the patient on how to do the dressing change. CHARLES addressed the patient's concerns for her not being able to reach the wound for wound changes. Megan advised to reassure the patient they will make sure she is taken care of properly. An appointment for the patient for 08/26 at 10:30AM. Due to the patient's concerns, CHARLES contacted [facility] (where the patient receives medical care) to inquire about assisting the patient with dressing changes, if needed. Elizabeth from [facility] reports they can assist with wound care changes, if needed. CHARLES faxed wound information to Elizabeth at [facility]. Will continue to monitor.
[2019-08-26 10:51] LABS: COLLECTION METHOD CLEAN CATCH
[2019-08-26 11:07] LABS: CLOSTRIDIUM DIFF A/B NEG; CLOSTRIDIUM DIFF A/B INTERP No C.diff present
[2019-08-26 11:11] LABS: PH 6 (5-8); SQUAMOUS EPITHELIAL 0-2 /hpf; URINE APPEARANCE Clear; URINE BACTERIA None Seen /hpf; URINE BILIRUBIN Negative (NEGATIVE); URINE BLOOD 2+ (NEGATIVE); URINE COLOR Straw; URINE GLUCOSE Negative (NEGATIVE); URINE KETONE Negative (NEGATIVE); URINE LEUKOCYTE ESTERASE Negative (NEGATIVE); URINE NITRATE Negative (NEGATIVE); URINE PROTEIN(semi-quant) Negative (NEGATIVE); URINE UROBILINOGEN Negative (NEGATIVE)
[2019-08-26 11:23] VITALS: BP 133/85; PULSE 72; TEMP 97.6
--- NOTE | 2019-08-26 11:41 | NUR ---
PT UP INDEPENDENTLY IN ROOM. DENIES NEEDS AT THIS TIME. AM MEDS GIVEN ORDERED. DRESSING TO ABDOMEN CDI WITH GAUZE AND TAPE OVER INCISION. OUT PATEINT WOUND CARE ARRANGED BY CLINICAL BIOSTATISTICS DIRECTOR. PT LIKELY TO DISCHARGE HOME LATER TODAY.
[2019-08-26] MEDS ORDERED: CIPRO 500MG TA500 MG PO (12:14)
[2019-08-26] MEDS ORDERED: MONODOX100 PO (12:14)
[2019-08-26] MEDS ORDERED: FLAGYL500 MG PO (12:15)
[2019-08-26] MEDS ORDERED: NORCO 325 MG-51 TAB PO (12:21)
--- NOTE | 2019-08-26 13:44 | NUR ---
The patient is to tentatively discharge home today, 08/25 with outpatient wound care from [facility]. The backup for wound care is the [facility] with the patient's PCP. There are no additional needs at this time.
--- NOTE | 2019-08-26 17:02 | NUR ---
DISCHARGE INSTRUCTIONS PROVIDED TO PATIENT AND QUESTIONS ANSWERED. PT ESCORTED TO ED TO POV. DRESSING CHANGE COMPLETE WET TO DRY PT TOLERATED WELL PRIOR TO DISCHARGE.
== END 2019-08-26 16:00 | disposition home or self-care (01) | DRG 571 ==
LOC: COL.ER 14:54 → SURG 17:22
PROVIDERS: Emergency Medicine; Nurse Practitioner Family; Physician Assistant; Surgery; ADMIT Internal Medicine
PROC: 02HV33Z Insertion of Infusion Device into Superior Vena Cava, Percutaneous Approach (ICD-10-PCS; 2019-08-18)
PROC: 0JB80ZZ Excision of Abdomen Subcutaneous Tissue and Fascia, Open Approach (ICD-10-PCS; principal; 2019-08-22 15:30)
DX: L03.311 Cellulitis of abdominal wall (principal); Z68.42 Body mass index [BMI] 45.0-49.9, adult; E03.9 Hypothyroidism, unspecified; E66.9 Obesity, unspecified; E87.6 Hypokalemia; E83.42 Hypomagnesemia; F17.200 Nicotine dependence, unspecified, uncomplicated; L02.211 Cutaneous abscess of abdominal wall; B95.2 Enterococcus as the cause of diseases classified elsewhere; T50.995A Adverse effect of other drugs, medicaments and biological substances, initial encounter; B95.1 Streptococcus, group B, as the cause of diseases classified elsewhere; D64.9 Anemia, unspecified; B96.20 Unspecified Escherichia coli [E. coli] as the cause of diseases classified elsewhere; R11.0 Nausea; K59.00 Constipation, unspecified; D47.3 Essential (hemorrhagic) thrombocythemia; E11.65 Type 2 diabetes mellitus with hyperglycemia; Z90.89 Acquired absence of other organs
CPT/HCPCS: 99222-AI; 99232-AI; 99233-AI; 99239; A4216; A9284; C1751; J0696; J1450; J1650; J1815; J1885; J2250; J2270; J2405; J2543; J2704; J2765; J3010; J3370; J3475; J7030; J7050; Q9967

== ENCOUNTER → 2019-09-02 | Outpatient (CLI) | payer OTHER ==
[~2019-09-02] MED LIST changes: +CIPRO 500MG TA500 MG PO; +FLAGYL500 MG PO; +HUMALOG100 U/ML SQ; +LANTUS SOLOS100 U/ML SQ; +MONODOX100 PO; +NORCO 325 MG-51 TAB PO
== END ==
LOC: MC.RAD 07-29 16:15
DX: Z12.31 Encounter for screening mammogram for malignant neoplasm of breast (principal)

== ENCOUNTER → 2019-10-10 | Outpatient (CLI) | payer SELFPAY | LOC: ZCOL.LAB 15:05 | DX: T14.8XXA Other injury of unspecified body region, initial encounter (principal); Z98.890 Other specified postprocedural states ==

== ENCOUNTER → 2019-10-13 | Outpatient (CLI) | payer SELFPAY | LOC: DIA.ED 08:00 | DX: E11.9 Type 2 diabetes mellitus without complications (principal); Z79.4 Long term (current) use of insulin; E66.8 Other obesity; E78.5 Hyperlipidemia, unspecified; E03.9 Hypothyroidism, unspecified | CPT/HCPCS: G0108 ==

== ENCOUNTER → 2020-02-11 | Outpatient (CLI) | payer SELFPAY | LOC: DIA.ED 15:16 | DX: E11.9 Type 2 diabetes mellitus without complications (principal); E66.8 Other obesity; E78.5 Hyperlipidemia, unspecified; I10 Essential (primary) hypertension; Z79.4 Long term (current) use of insulin | CPT/HCPCS: G0108 ==

== ENCOUNTER → 2020-03-31 | Outpatient (CLI) | payer SELFPAY | LOC: DIA.ED 03-24 15:53 | DX: E11.9 Type 2 diabetes mellitus without complications (principal); Z79.4 Long term (current) use of insulin; E78.5 Hyperlipidemia, unspecified; E66.8 Other obesity | CPT/HCPCS: G0108 ==

== ENCOUNTER → 2020-04-07 | Outpatient (CLI) | payer SELFPAY ==
[2020-04-09 16:26] LABS: A/G RATIO (PEP) 0.86 (()); BETA GLOBULINS (PEP) 1.6 g/dL (0.7-1.2)
== END ==
LOC: COL.LAB 16:13
PROVIDERS: Internal Medicine
DX: Z01.89 Encounter for other specified special examinations (principal)

== ENCOUNTER 2020-06-13 18:04 | Emergency (ER) | payer BC ==
[~2020-06-13] VITALS: Ht 154.9 cm; Wt 110.5 kg
[2020-06-13 18:08] VITALS: TEMP 98.3
[2020-06-13 18:46] LABS: BASO # 0.1 (0.0-0.2); BASO % 0.4 % (0.0-2.0); EOS # 0.2 (0.0-0.7); EOS % 1.1 % (0-4.0); GRAN # 12.5 (1.4-6.5); GRAN % 78.2 % (42.2-75.2); HEMATOCRIT 40.8 % (37.0-47.0); HEMOGLOBIN 12.5 g/dl (12.5-16.0); LYMPH # 2.5 (1.2-3.4); LYMPH % 15.4 % (20.0-51.0); MEAN CELL VOLUME 73 fl (80.0-100.0); MEAN CORPUSCULAR HEMOGLOBIN 22 pg (27.0-31.0); MEAN CORPUSCULAR HGB CONC 31 g/dl (33.0-37.0); MONO # 0.7 (0.1-0.6); MONO % 4.2 % (1.7-9.3); PLATELET COUNT 413 K/mm3 (130-400); RED BLOOD COUNT 5.61 M/mm3 (4.10-5.30); REDCELL DISTRIBUTION WIDTH-CV 17.4 % (11.5-14.5)
[2020-06-13 19:00] LABS: ALANINE AMINOTRANSFERASE 16 U/L (4-34); ALBUMIN 4.8 gm/dL (3.5-5.0); ALKALINE PHOSPHATASE 112 U/L (50-136); ANION GAP 12 mmol/L (7-16); AST,SGOT 18 U/L (15-37); BILIRUBIN,TOTAL 0.5 mg/dL (0.0-1.0); BLOOD UREA NITROGEN 15 mg/dL (7-17); C-REACTIVE PROTEIN 2.1 mg/dL (0.0-0.9); CALCIUM 9.7 mg/dL (8.4-10.2); CARBON DIOXIDE 22 mmol/L (22-30); CHLORIDE 102 mmol/L (98-107); CREATININE, serum 0.69 (0.52-1.25); GLUCOSE 305 mg/dL (74-106); POTASSIUM 3.7 mmol/L (3.4-5.0); SODIUM 136 mmol/L (137-145); TOTAL PROTEIN 8.5 gm/dL (6.4-8.2)
[2020-06-13 19:09] LABS: TROPONIN-I < 0.012 ng/mL (0.000-0.035)
[2020-06-13 21:30] VITALS: BP 135/70; PULSE 67
== END 2020-06-13 21:30 | disposition home or self-care (01) ==
LOC: COL.ER 18:04
PROVIDERS: Nurse Practitioner
DX: R05 Cough (principal); R07.9 Chest pain, unspecified; E11.9 Type 2 diabetes mellitus without complications; E66.9 Obesity, unspecified; F17.210 Nicotine dependence, cigarettes, uncomplicated; Z20.822 Contact with and (suspected) exposure to COVID-19; Z79.4 Long term (current) use of insulin
CPT/HCPCS: J1885; J7030; Q9967

== ENCOUNTER → 2020-09-06 | Outpatient (CLI) | payer BC ==
[~2020-09-06] VITALS: Ht 154.9 cm; Wt 113.0 kg
[~2020-09-06] MED LIST changes: +CEPHALEXIN500 M1 PO; +CRESTOR5 MG PO; +CYMBALTA 60MG60 MG PO; +FORTAMET500 M1 PO; +GLUCOPHAGE500 MG/TAB PO; +LEVOXYL0.125 MG PO; +MOTRIN 600600 MG/TAB PO; +ONE-A-DAY ESSE1 EACH PO; +PREDNISONE10 MG PO; +SYNTHROID0.137 MG PO; +TRULICITY0.75 MG/0. SQ; +ZOFRAN 4MG T4 MG/TAB PO
[2020-09-06 13:03] VITALS: BP 136/74; PULSE 86
--- NOTE | 2020-09-06 13:30 | NUR ---
Dr Horne into room to look at thyroid. No nodule found. Procedure canceled. Pt back to holding area to get dressed. Pt out to car per ambulation.
== END ==
LOC: COL.RAD 12:30
DX: E04.1 Nontoxic single thyroid nodule (principal)

== ENCOUNTER 2020-10-11 17:14 | Emergency (ER) | payer BC ==
[~2020-10-11] VITALS: Ht 154.9 cm; Wt 111.4 kg
[~2020-10-11 17:14] MED LIST changes: -CEPHALEXIN500 M1 PO; -FORTAMET500 M1 PO; -MOTRIN 600600 MG/TAB PO; -SYNTHROID0.137 MG PO; -TRULICITY0.75 MG/0. SQ; -ZOFRAN 4MG T4 MG/TAB PO
[2020-10-11 17:27] VITALS: TEMP 98.6
[2020-10-11 18:24] LABS: BASO # 0.1 (0.0-0.2); BASO % 0.3 % (0.0-2.0); EOS # 0.3 (0.0-0.7); EOS % 1.9 % (0-4.0); GRAN # 11.1 (1.4-6.5); GRAN % 75.8 % (42.2-75.2); HEMATOCRIT 39.9 % (37.0-47.0); HEMOGLOBIN 12.4 g/dl (12.5-16.0); LYMPH # 2.4 (1.2-3.4); LYMPH % 16.6 % (20.0-51.0); MEAN CELL VOLUME 75 fl (80.0-100.0); MEAN CORPUSCULAR HEMOGLOBIN 23 pg (27.0-31.0); MEAN CORPUSCULAR HGB CONC 31 g/dl (33.0-37.0); MEAN PLATELET VOLUME 11.9 fl (7.4-10.4); MONO # 0.7 (0.1-0.6); MONO % 4.6 % (1.7-9.3); PLATELET COUNT 426 K/mm3 (130-400); RED BLOOD COUNT 5.32 M/mm3 (4.10-5.30); REDCELL DISTRIBUTION WIDTH-CV 18.5 % (11.5-14.5)
[2020-10-11 18:45] LABS: ALBUMIN 4.4 gm/dL (3.5-5.0); BILIRUBIN,TOTAL 0.2 mg/dL (0.0-1.0); CALCIUM 9.8 mg/dL (8.4-10.2); CREATININE, serum 0.77 (0.52-1.25); TOTAL PROTEIN 8.1 gm/dL (6.4-8.2)
[2020-10-11 20:19] LABS: COLLECTION METHOD CLEAN CATCH
[2020-10-11 20:32] LABS: MUCOUS Present /lpf; PH 5 (5-8); URINE APPEARANCE Cloudy; URINE BACTERIA None Seen /hpf; URINE BILIRUBIN Negative (NEGATIVE); URINE BLOOD 3+ (NEGATIVE); URINE COLOR Amber; URINE GLUCOSE 3+ (NEGATIVE); URINE KETONE Negative (NEGATIVE); URINE LEUKOCYTE ESTERASE Negative (NEGATIVE); URINE NITRATE Negative (NEGATIVE); URINE PROTEIN(semi-quant) 1+ (NEGATIVE)
[2020-10-11] MEDS ORDERED: CEPHALEXIN500 M1 PO (20:41)
[2020-10-11 21:05] VITALS: BP 123/73; PULSE 80
== END 2020-10-11 21:10 | disposition home or self-care (01) ==
LOC: COL.ER 17:14
PROVIDERS: Physician Assistant
DX: N92.0 Excessive and frequent menstruation with regular cycle (principal); E11.65 Type 2 diabetes mellitus with hyperglycemia; N39.0 Urinary tract infection, site not specified; I10 Essential (primary) hypertension; E78.5 Hyperlipidemia, unspecified; F32.9 Major depressive disorder, single episode, unspecified; M79.7 Fibromyalgia; M06.9 Rheumatoid arthritis, unspecified; E66.01 Morbid (severe) obesity due to excess calories; F17.210 Nicotine dependence, cigarettes, uncomplicated; Z68.42 Body mass index [BMI] 45.0-49.9, adult; Z32.02 Encounter for pregnancy test, result negative; Z79.4 Long term (current) use of insulin; Z79.52 Long term (current) use of systemic steroids; Z79.899 Other long term (current) drug therapy
CPT/HCPCS: J0696; J1885; J2270; J7030

== ENCOUNTER → 2021-03-02 | Outpatient (CLI) | payer BC ==
[~2021-03-02] MED LIST changes: +CEPHALEXIN500 M1 PO; +FORTAMET500 M1 PO; +MOTRIN 600600 MG/TAB PO; +SYNTHROID0.137 MG PO; +TRULICITY0.75 MG/0. SQ; +ZOFRAN 4MG T4 MG/TAB PO
== END ==
LOC: DIA.ED 05-12 10:05
DX: E11.65 Type 2 diabetes mellitus with hyperglycemia (principal); Z79.4 Long term (current) use of insulin; E78.5 Hyperlipidemia, unspecified
CPT/HCPCS: G0108

== ENCOUNTER 2021-03-03 10:23 | Day surgery (SDC) | payer BC ==
[~2021-03-03] VITALS: Ht 154.9 cm; Wt 108.0 kg
[~2021-03-03 10:23] MED LIST changes: -FORTAMET500 M1 PO; -MOTRIN 600600 MG/TAB PO; -SYNTHROID0.137 MG PO; -TRULICITY0.75 MG/0. SQ; -ZOFRAN 4MG T4 MG/TAB PO
[2021-03-03] MEDS ORDERED: SYNTHROID0.137 MG PO (10:57)
[2021-03-03] MEDS ORDERED: FORTAMET500 M1 PO (10:58)
[2021-03-03] MEDS ORDERED: ZOFRAN 4MG T4 MG/TAB PO (10:59)
[2021-03-03] MEDS ORDERED: TRULICITY0.75 MG/0. SQ (11:00)
[2021-03-03 11:28] VITALS: BP 126/63; PULSE 68; TEMP 98
--- NOTE | 2021-03-03 11:48 | NUR ---
Accucheck of 230 reported to Jb Decker SENIOR LIBRARIAN and order for moderate sliding scale insulin inititaed.
[2021-03-03 11:55] LABS: CALCIUM 9.6 mg/dL (8.4-10.2); CREATININE, serum 0.81 mg/dL (0.57-1.11); POTASSIUM 3.8 mmol/L (3.5-4.5)
[2021-03-03 13:19] VITALS: BP 115/42; PULSE 81
--- NOTE | 2021-03-03 13:19 | NUR ---
Patient returns to room 6 per cart from surgery accompanied by Jb Decker CRNA and Charla BENNETT. Patient is awake and alert. IV fluids infusing. Dressing clean and dry on the right lower quadrant of abdomen. Exofin skin glue noted. Tmep 97.9 and room air sats 100%. Siderails up x2 and call light in reach. Allowed to rest.
[2021-03-03] MEDS ORDERED: NORCO 325 MG-51 TAB PO (13:29)
[2021-03-03] MEDS ORDERED: MOTRIN 600600 MG/TAB PO (13:29)
[2021-03-03 13:34] VITALS: BP 121/69; PULSE 59
--- NOTE | 2021-03-03 13:34 | NUR ---
Resting with eyes closed and offered no complaints of pain or nausea.
[2021-03-03 13:49] VITALS: BP 124/70; PULSE 70
--- NOTE | 2021-03-03 13:49 | NUR ---
Eating muffin and drinking juice. Denies pain or nausea.
[2021-03-03 14:04] VITALS: BP 123/67; PULSE 73
--- NOTE | 2021-03-03 14:04 | NUR ---
Tolerates snack well. Continues to deny pain or nausea.
--- NOTE | 2021-03-03 14:25 | NUR ---
Dismissal instructions given and voices understanding of these. IV discontinued.
--- NOTE | 2021-03-03 14:33 | NUR ---
Patient dismissed to home driven by spouse and taken to the emergency room by wheelchair and assisted into vehicle with instructions in hand.
== END 2021-03-03 14:33 | disposition home or self-care (01) ==
LOC: SDCO 10:23
PROVIDERS: Surgery
DX: L98.6 Other infiltrative disorders of the skin and subcutaneous tissue (principal); Z79.4 Long term (current) use of insulin; Z79.899 Other long term (current) drug therapy; E11.9 Type 2 diabetes mellitus without complications; F17.210 Nicotine dependence, cigarettes, uncomplicated; K21.9 Gastro-esophageal reflux disease without esophagitis; M19.90 Unspecified osteoarthritis, unspecified site; E03.9 Hypothyroidism, unspecified; M79.7 Fibromyalgia
CPT/HCPCS: J1815; J7030

== ENCOUNTER 2021-04-08 11:55 | Emergency (ER) | payer BC ==
[~2021-04-08] VITALS: Ht 154.9 cm; Wt 113.2 kg
[~2021-04-08 11:55] MED LIST changes: +FORTAMET500 M1 PO; +MOTRIN 600600 MG/TAB PO; +SYNTHROID0.137 MG PO; +TRULICITY0.75 MG/0. SQ; +ZOFRAN 4MG T4 MG/TAB PO
[2021-04-08 14:44] LABS: BASO % 0.2 % (0.0-2.0); EOS # 0.2 K/mm3 (0.0-0.7); EOS % 1.3 % (0-4.0); GRAN % 74.2 % (42.2-75.2); HEMATOCRIT 39.8 % (37.0-47.0); HEMOGLOBIN 12.2 g/dl (12.5-16.0); LYMPH # 2.9 K/mm3 (1.2-3.4); LYMPH % 19.3 % (20.0-51.0); MEAN CELL VOLUME 74 fl (80.0-100.0); MEAN CORPUSCULAR HEMOGLOBIN 23 pg (27.0-31.0); MEAN CORPUSCULAR HGB CONC 31 g/dl (33.0-37.0); MEAN PLATELET VOLUME 11.9 fl (7.4-10.4); MONO # 0.7 K/mm3 (0.1-0.6); MONO % 4.5 % (1.7-9.3); PLATELET COUNT 382 K/mm3 (130-400); RED BLOOD COUNT 5.35 M/mm3 (4.10-5.30)
[2021-04-08 15:01] LABS: ALANINE AMINOTRANSFERASE 16 U/L (0-55); ALKALINE PHOSPHATASE 104 U/L (40-150); ANION GAP 11 mmol/L (7-16); AST,SGOT 12 U/L (5-34); BILIRUBIN,TOTAL 0.3 mg/dL (0.2-1.2); BLOOD UREA NITROGEN 13 mg/dL (7-19); CALCIUM 9.5 mg/dL (8.4-10.2); CARBON DIOXIDE 24 mmol/L (22-29); CHLORIDE 106 mmol/L (98-107); CREATININE, serum 0.78 mg/dL (0.57-1.11); GLUCOSE 138 mg/dL (70-99); POTASSIUM 4.4 mmol/L (3.5-4.5); SODIUM 141 mmol/L (136-145); TOTAL PROTEIN 8.1 gm/dL (6.2-8.1)
[2021-04-08 15:11] LABS: TROPONIN-I < 0.010 ng/mL (0.00-0.033)
[2021-04-08 15:35] VITALS: BP 138/78; PULSE 74; TEMP 98.2
== END 2021-04-08 15:35 | disposition home or self-care (01) ==
LOC: COL.ER 11:55
PROVIDERS: Emergency Medicine
DX: M25.521 Pain in right elbow (principal); R07.9 Chest pain, unspecified; E11.9 Type 2 diabetes mellitus without complications; Z79.4 Long term (current) use of insulin
CPT/HCPCS: J2270

== ENCOUNTER → 2021-10-05 | Outpatient (CLI) | payer BC ==
[~2021-10-05] MED LIST changes: +CRESTOR20 MG PO
== END ==
LOC: COL.RAD 09-02 08:30
DX: R10.32 Left lower quadrant pain (principal); D72.829 Elevated white blood cell count, unspecified

== ENCOUNTER → 2021-10-05 | Outpatient (CLI) | payer BC | LOC: DIA.ED 08-17 15:49 | DX: E11.65 Type 2 diabetes mellitus with hyperglycemia (principal); Z79.4 Long term (current) use of insulin; E78.5 Hyperlipidemia, unspecified | CPT/HCPCS: G0108 ==

== ENCOUNTER → 2022-01-18 | Outpatient (CLI) | payer BC | LOC: DIA.ED 01-11 09:57 | DX: E11.65 Type 2 diabetes mellitus with hyperglycemia (principal); Z79.4 Long term (current) use of insulin; E78.5 Hyperlipidemia, unspecified | CPT/HCPCS: G0108 ==

== ENCOUNTER → 2024-02-26 | Outpatient (CLI) | payer OTHER ==
[~2024-02-26] MED LIST changes: +ROBAXIN 50500 MG/TAB PO; +ZOFRAN ODT4 MG PO
== END ==
LOC: COL.RAD 07:30
DX: M47.26 Other spondylosis with radiculopathy, lumbar region (principal); M47.27 Other spondylosis with radiculopathy, lumbosacral region; M51.16 Intervertebral disc disorders with radiculopathy, lumbar region; M51.17 Intervertebral disc disorders with radiculopathy, lumbosacral region